=== PATIENT | male | born 1965 | race Asian ===

== ENCOUNTER 2020-05-12 08:18 | Outpatient (REF) | payer OTHER, SELFPAY | END 2020-05-12 08:19 | disposition home or self-care (01) | LOC: HO.LAB 08:18 | PROVIDERS: PCP Internal Medicine; Visit Provider Internal Medicine | DX: Z20.828 Contact with and (suspected) exposure to other viral communicable diseases (principal) | CPT/HCPCS: C9803; U0003 ==

== ENCOUNTER 2020-05-18 09:12 | Outpatient (REF) | payer OTHER, SELFPAY ==
[2020-05-18 10:21] LABS: MANUAL DIFF FLAG NO
[2020-05-18 10:44] LABS: Basophils Absolute Auto 0.1 X10*3/uL (0.0-0.2); Basophils Percent Auto 1.2 % (0-2); Eosinophils Absolute Auto 0.1 X10*3/uL (0.0-0.4); Eosinophils Percent Auto 1.2 % (0-4); Hematocrit 43.8 % (42-52); Hemoglobin 14.8 g/dl (14.0-18.0); Imm Gran Abs Auto 0.02 X10*3/uL (0.00-0.03); Imm Gran Pct Auto 0.3 % (0.0-0.4); Lymphocytes Absolute Auto 2.7 X10*3/uL (1.2-4.9); Lymphocytes Percent Auto 39.2 % (20-40); Mean Corpuscular HGB Conc 33.8 g/dl (31.0-36.0); Mean Corpuscular Volume 79.9 fL (80-98); Mean Platelet Volume 11.5 fL (9.4-12.4); Monocytes Absolute Auto 0.5 X10*3/uL (0.1-1.2); Monocytes Percent Auto 6.5 % (2-11); Neutrophils Absolute Auto 3.6 X10*3/uL (2.0-8.3); Neutrophils Percent Auto 51.6 % (45-73); Platelet Count 286 X10*3/uL (160-400); Red Blood Count 5.48 X10*6/uL (4.60-5.80); Red Cell Distribution Width 13.7 % (11.0-16.0); White Blood Count 6.9 X10*3/uL (4.8-10.8)
[2020-05-18 10:49] LABS: Estimated Average Glucose 120 mg/dL; Hemoglobin A1c % 5.8 %
[2020-05-18 10:51] LABS: Alanine Aminotransferase 28 U/L (0-40); Albumin Level 4.4 g/dL (3.5-5.0); Alkaline Phosphatase 76 U/L (39-117); Anion Gap 13 (12-20); Aspartate Amino Transferase 18 U/L (5-37); Bilirubin Total 0.5 mg/dL (0.0-1.0); Blood Urea Nitrogen 14 mg/dL (9-16); Calcium 8.7 mg/dL (8.4-10.2); Carbon Dioxide 26 mmol/L (22-29); Chloride 104 mmol/L (96-108); Cholesterol 134 mg/dL; Estimated Glomerular Filt Rate > 60; Glucose Random 107 mg/dL (60-115); HDL Cholesterol 30 mg/dL; LDL Cholesterol Calculated 70 mg/dl; Potassium 4.4 mmol/l (3.3-5.1); Sodium 139 mmol/L (135-145); Triglycerides 174 mg/dL
[2020-05-18 11:13] LABS: Thyroid Stimulating Hormone 1.16 uIU/mL (0.32-4.0)
[2020-05-18 11:55] LABS: Creatinine Urine 179.41 mg/dL; Microalbum/Creatinine Ratio Ur 3.9 ug/mg cr
== END 2020-05-18 09:13 | disposition home or self-care (01) ==
LOC: HO.LAB 09:12
PROVIDERS: Visit Provider Internal Medicine
DX: E11.9 Type 2 diabetes mellitus without complications (principal); I10 Essential (primary) hypertension; R80.8 Other proteinuria; Z00.00 Encounter for general adult medical examination without abnormal findings
CPT/HCPCS: 36415; 80053; 80061; 82043; 83036; 84443; 85025

== ENCOUNTER 2020-08-12 08:24 | Outpatient (REF) | payer OTHER, SELFPAY ==
[2020-08-12 09:27] LABS: Estimated Average Glucose 126 mg/dL
[2020-08-12 09:29] LABS: Alanine Aminotransferase 28 U/L (0-40); Albumin Level 4.5 g/dL (3.5-5.0); Alkaline Phosphatase 68 U/L (39-117); Anion Gap 11 (12-20); Aspartate Amino Transferase 17 U/L (5-37); Bilirubin Total 0.7 mg/dL (0.0-1.0); Blood Urea Nitrogen 14 mg/dL (9-16); Calcium 9.2 mg/dL (8.4-10.2); Carbon Dioxide 29 mmol/L (22-29); Chloride 102 mmol/L (96-108); Estimated Glomerular Filt Rate > 60; Glucose Random 114 mg/dL (60-115); Potassium 4.4 mmol/L (3.3-5.1); Sodium 138 mmol/L (135-145); Total Protein 7.1 g/dL (6.5-8.0)
== END 2020-08-12 08:25 | disposition home or self-care (01) ==
LOC: HO.LAB 08:24
PROVIDERS: PCP Internal Medicine; Visit Provider Internal Medicine
DX: E11.9 Type 2 diabetes mellitus without complications (principal); E78.2 Mixed hyperlipidemia; I10 Essential (primary) hypertension; R21 Rash and other nonspecific skin eruption; R80.8 Other proteinuria
CPT/HCPCS: 36415; 80053; 83036

== ENCOUNTER 2021-01-05 06:02 | Outpatient (REF) | payer OTHER, SELFPAY ==
[2021-01-05 07:05] LABS: Estimated Average Glucose 128 mg/dL; Hemoglobin A1c % 6.1 %
[2021-01-05 07:20] LABS: Alanine Aminotransferase 24 U/L (0-40); Albumin Level 4.5 g/dL (3.5-5.0); Alkaline Phosphatase 67 U/L (39-117); Anion Gap 13 (12-20); Aspartate Amino Transferase 19 U/L (5-37); Bilirubin Total 0.5 mg/dL (0.0-1.0); Blood Urea Nitrogen 14 mg/dL (9-16); Calcium 9.3 mg/dL (8.4-10.2); Carbon Dioxide 28 mmol/L (22-29); Chloride 104 mmol/L (96-108); Estimated Glomerular Filt Rate > 60; Glucose Random 119 mg/dL (60-115); Potassium 4.1 mmol/L (3.3-5.1); Sodium 141 mmol/L (135-145)
== END 2021-01-05 06:03 | disposition home or self-care (01) ==
LOC: HO.LAB 06:02
PROVIDERS: PCP Internal Medicine; Visit Provider Internal Medicine
DX: E11.9 Type 2 diabetes mellitus without complications (principal); E78.2 Mixed hyperlipidemia; I10 Essential (primary) hypertension; N52.9 Male erectile dysfunction, unspecified
CPT/HCPCS: 36415; 80053; 83036

== ENCOUNTER 2021-05-04 16:43 | Outpatient (REF) | payer OTHER, SELFPAY ==
[2021-05-04 16:55] LABS: MANUAL DIFF FLAG NO
[2021-05-04 17:46] LABS: Basophils Absolute Auto 0.1 X10*3/uL (0.0-0.2); Basophils Percent Auto 1.1 % (0-2); Eosinophils Percent Auto 0.5 % (0-4); Hematocrit 43.6 % (42.0-52.0); Hemoglobin 14.9 g/dl (14.0-18.0); Imm Gran Abs Auto 0.03 X10*3/uL (0.00-0.03); Imm Gran Pct Auto 0.4 % (0.0-0.4); Lymphocytes Absolute Auto 2.6 X10*3/uL (1.2-4.9); Mean Corpuscular HGB Conc 34.2 g/dl (31.0-36.0); Mean Corpuscular Hemoglobin 27.2 pg (27.0-33.0); Mean Corpuscular Volume 79.6 fL (80.0-98.0); Mean Platelet Volume 11.3 fL (9.4-12.4); Monocytes Absolute Auto 0.6 X10*3/uL (0.1-1.2); Monocytes Percent Auto 7.5 % (2-11); Neutrophils Absolute Auto 4.2 x10*3/uL (2.0-8.3); Neutrophils Percent Auto 55.5 % (45-73); Platelet Count 265 X10*3/uL (160-400); Red Blood Count 5.48 X10*6/uL (4.60-5.80); Red Cell Distribution Width 13.6 % (11.0-16.0); White Blood Count 7.5 X10*3/uL (4.8-10.8)
[2021-05-04 18:00] LABS: Estimated Average Glucose 134 mg/dL; Hemoglobin A1c % 6.3 %
[2021-05-04 18:10] LABS: Alanine Aminotransferase 26 U/L (0-40); Albumin Level 4.7 g/dL (3.5-5.0); Alkaline Phosphatase 71 U/L (39-117); Anion Gap 12 (12-20); Aspartate Amino Transferase 19 U/L (5-37); Bilirubin Total 0.3 mg/dL (0.0-1.0); Blood Urea Nitrogen 15 mg/dL (9-16); Calcium 9.6 mg/dL (8.4-10.2); Carbon Dioxide 29 mmol/L (22-29); Chloride 104 mmol/L (96-108); Cholesterol 124 mg/dL; Estimated Glomerular Filt Rate > 60; Glucose Random 110 mg/dL (60-115); HDL Cholesterol 32 mg/dL; LDL Cholesterol Calculated 62 mg/dl; Potassium 4.1 mmol/L (3.3-5.1); Sodium 141 mmol/L (135-145); Total Protein 7.4 g/dL (6.5-8.0); Triglycerides 154 mg/dL
[2021-05-04 18:11] LABS: Creatinine Urine 142.62 mg/dL; Microalbum/Creatinine Ratio Ur 4.9 ug/mg cr
== END 2021-05-04 16:44 | disposition home or self-care (01) ==
LOC: HO.LAB 16:43
PROVIDERS: PCP Internal Medicine; Visit Provider Internal Medicine
DX: Z00.00 Encounter for general adult medical examination without abnormal findings (principal); E11.9 Type 2 diabetes mellitus without complications; I10 Essential (primary) hypertension; M77.11 Lateral epicondylitis, right elbow
CPT/HCPCS: 36415; 80053; 80061; 82043; 83036; 85025

== ENCOUNTER 2021-08-25 14:02 | Outpatient (REF) | payer OTHER, SELFPAY ==
[2021-08-25 14:17] LABS: MANUAL DIFF FLAG NO
[2021-08-25 14:23] LABS: Basophils Absolute Auto 0.1 X10*3/uL (0.0-0.2); Basophils Percent Auto 0.7 % (0-2); Eosinophils Percent Auto 0.4 % (0-4); Hematocrit 44.6 % (42.0-52.0); Hemoglobin 15.3 g/dl (14.0-18.0); Imm Gran Abs Auto 0.02 X10*3/uL (0.00-0.03); Imm Gran Pct Auto 0.2 % (0.0-0.4); Lymphocytes Absolute Auto 2.6 X10*3/uL (1.2-4.9); Lymphocytes Percent Auto 28.8 % (20-40); Mean Corpuscular HGB Conc 34.3 g/dl (31.0-36.0); Mean Corpuscular Hemoglobin 27.1 pg (27.0-33.0); Mean Corpuscular Volume 79.1 fL (80.0-98.0); Mean Platelet Volume 10.4 fL (9.4-12.4); Monocytes Absolute Auto 0.5 X10*3/uL (0.1-1.2); Monocytes Percent Auto 5.7 % (2-11); Neutrophils Absolute Auto 5.8 x10*3/uL (2.0-8.3); Neutrophils Percent Auto 64.2 % (45-73); Platelet Count 299 X10*3/uL (160-400); Red Blood Count 5.64 X10*6/uL (4.60-5.80); Red Cell Distribution Width 13.4 % (11.0-16.0); White Blood Count 9.1 X10*3/uL (4.8-10.8)
[2021-08-25 14:41] LABS: Estimated Average Glucose 128 mg/dL; Hemoglobin A1c % 6.1 %
[2021-08-25 15:03] LABS: Creatinine Urine 80.59 mg/dL; Microalbumin Urine < 5.0 mg/L
[2021-08-25 15:09] LABS: Alanine Aminotransferase 31 U/L (0-40); Albumin Level 4.6 g/dL (3.5-5.0); Alkaline Phosphatase 72 U/L (39-117); Anion Gap 13 (12-20); Aspartate Amino Transferase 22 U/L (5-37); Bilirubin Total 0.6 mg/dL (0.0-1.0); Blood Urea Nitrogen 17 mg/dL (9-16); Calcium 9.7 mg/dL (8.4-10.2); Carbon Dioxide 28 mmol/L (22-29); Chloride 100 mmol/L (96-108); Cholesterol 135 mg/dL; Estimated Glomerular Filt Rate > 60; Glucose Random 92 mg/dL (60-115); HDL Cholesterol 28 mg/dL; LDL Cholesterol Calculated 81 mg/dl; Sodium 137 mmol/L (135-145); Total Protein 7.2 g/dL (6.5-8.0); Triglycerides 132 mg/dL
== END 2021-08-25 14:03 | disposition home or self-care (01) ==
LOC: HO.LAB 14:02
PROVIDERS: PCP Internal Medicine; Visit Provider Internal Medicine
DX: Z00.00 Encounter for general adult medical examination without abnormal findings (principal); E11.9 Type 2 diabetes mellitus without complications; I10 Essential (primary) hypertension; M77.11 Lateral epicondylitis, right elbow
CPT/HCPCS: 36415; 80053; 80061; 82043; 83036; 85025

== ENCOUNTER 2021-08-30 16:22 | Outpatient (REF) | payer OTHER, SELFPAY ==
--- NOTE | ~2021-08-30 | CT_ITS ---
EXAMINATION: CT CHEST SCREENING CLINICAL INFORMATION: Former smoker. Quit 3 years ago. 30 pack-year history. COMPARISON: Previous chest CT scans most recent February 2020 TECHNIQUE: Multidetector volumetric CT imaging of the chest is performed without contrast using low dose technique. Additional 2D coronal and sagittal reformatted images and axial 3D maximum intensity projection (MIP) images are generated on the CT workstation. This CT examination was performed using dose optimization techniques as appropriate, variously including the following: *Automated exposure control *Adjustment of mA and/or kV according to patient size (this includes techniques or standardized protocols for targeted exams where dose is matched to indication/reason for exam; i.e. extremities or head) *Use of iterative reconstruction technique DLP: 52 mGy-cm FINDINGS: LUNGS: There is right apical pleural thickening. There is a new 3 mm left upper lobe nodule, axial image 180 series 5. The pulmonary nodules are otherwise stable. There is chronic scarring or subsegmental atelectasis in the medial segment of the right middle lobe. This is unchanged. No endobronchial or endotracheal lesion is seen. MEDIASTINUM: The mediastinum is normal. PLEURA: There is no pleural effusion. No pleural mass or thickening. AXILLA: No lymphadenopathy. UPPER ABDOMEN: Unremarkable OSSEOUS STRUCTURES: Unremarkable. CT/CT lung screening IMPRESSION: New 3 mm left upper lobe nodule. ASSESSMENT: Lung-RADS category 2 RECOMMENDATION: Annual low dose chest CT follow up recommended.
== END 2021-08-30 16:23 | disposition home or self-care (01) ==
LOC: HO.CT 16:22
PROVIDERS: Visit Provider Physician Assistant Medical
DX: Z12.2 Encounter for screening for malignant neoplasm of respiratory organs (principal); F17.210 Nicotine dependence, cigarettes, uncomplicated
CPT/HCPCS: 71271

== ENCOUNTER 2022-02-05 07:14 | Outpatient (REF) | payer OTHER, SELFPAY ==
[2022-02-05 08:01] LABS: Estimated Average Glucose 126 mg/dL
[2022-02-05 08:42] LABS: Alanine Aminotransferase 21 U/L (0-40); Albumin Level 4.3 g/dL (3.5-5.0); Alkaline Phosphatase 70 U/L (39-117); Anion Gap 14 (12-20); Aspartate Amino Transferase 15 U/L (5-37); Bilirubin Total 0.5 mg/dL (0.0-1.0); Blood Urea Nitrogen 14 mg/dL (9-16); Calcium 8.8 mg/dL (8.4-10.2); Carbon Dioxide 26 mmol/L (22-29); Chloride 105 mmol/L (96-108); Estimated Glomerular Filt Rate > 60; Glucose Fasting 135 mg/dL (60-99); Potassium 4.4 mmol/L (3.3-5.1); Sodium 141 mmol/L (135-145); Total Protein 6.9 g/dL (6.5-8.0)
== END 2022-02-05 07:15 | disposition home or self-care (01) ==
LOC: HO.LAB 07:14
PROVIDERS: PCP Internal Medicine; Visit Provider Internal Medicine
DX: E11.9 Type 2 diabetes mellitus without complications (principal); E78.00 Pure hypercholesterolemia, unspecified; F17.201 Nicotine dependence, unspecified, in remission; I10 Essential (primary) hypertension
CPT/HCPCS: 36415; 80053; 83036

== ENCOUNTER 2022-04-26 15:29 | Outpatient (REF) | payer OTHER, SELFPAY ==
--- NOTE | ~2022-04-26 | XR_ITS ---
EXAMINATION: XR CHEST CLINICAL INFORMATION: Cough. COMPARISON: Morning Caregiver film from CT dated 08/30/2021 TECHNIQUE: 2 views of the chest were obtained. FINDINGS: There is no evidence for an acute finding. The lung park are felt to be comparable. No acute infiltrate or effusion. The cardiac silhouette is within normal limits. The hilar regions are comparable to previous. Not pathologically enlarged. There is no effusion. XR/XR chest 2V IMPRESSION: No acute finding.
== END 2022-04-26 15:30 | disposition home or self-care (01) ==
LOC: HO.XRAY 15:29
PROVIDERS: PCP Internal Medicine; Visit Provider Internal Medicine
DX: R05.9 Cough, unspecified (principal); F17.200 Nicotine dependence, unspecified, uncomplicated
CPT/HCPCS: 71046

== ENCOUNTER 2022-06-11 09:57 | Outpatient (REF) | payer OTHER, SELFPAY ==
[2022-06-11 11:15] LABS: Estimated Average Glucose 140 mg/dL; Hemoglobin A1c % 6.5 %
[2022-06-11 11:38] LABS: Alanine Aminotransferase 28 U/L (0-40); Albumin Level 4.5 g/dL (3.5-5.0); Alkaline Phosphatase 82 U/L (39-117); Anion Gap 14 (12-20); Aspartate Amino Transferase 20 U/L (5-37); Bilirubin Total 0.6 mg/dL (0.0-1.0); Blood Urea Nitrogen 14 mg/dL (9-16); Calcium 9.5 mg/dL (8.4-10.2); Carbon Dioxide 27 mmol/L (22-29); Chloride 105 mmol/L (96-108); Cholesterol 135 mg/dL; Estimated Glomerular Filt Rate > 60; Glucose Random 124 mg/dL (60-115); HDL Cholesterol 29 mg/dL; LDL Cholesterol Calculated 71 mg/dl; Potassium 4.5 mmol/L (3.3-5.1); Sodium 141 mmol/L (135-145); Total Protein 7.1 g/dL (6.5-8.0); Triglycerides 179 mg/dL
[2022-06-11 11:38] LABS: Microalbum/Creatinine Ratio Ur 4.4 ug/mg cr
[2022-06-11 11:56] LABS: Prostate Specific Antigen Scr 0.32 ng/mL (<0.05-4.0); Thyroid Stimulating Hormone 1.25 uIU/mL (0.32-4.0)
== END 2022-06-11 09:58 | disposition home or self-care (01) ==
LOC: HO.LAB 09:57
PROVIDERS: Visit Provider Internal Medicine
DX: Z12.5 Encounter for screening for malignant neoplasm of prostate (principal); E78.2 Mixed hyperlipidemia; I10 Essential (primary) hypertension; F17.200 Nicotine dependence, unspecified, uncomplicated
CPT/HCPCS: 36415; 80053; 80061; 82043; 83036; 84153; 84443

== ENCOUNTER 2022-09-20 11:01 | Outpatient (REF) | payer OTHER, SELFPAY ==
[2022-09-20 13:22] LABS: Estimated Average Glucose 131 mg/dL; Hemoglobin A1c % 6.2 %
[2022-09-20 13:49] LABS: Alanine Aminotransferase 25 U/L (0-40); Albumin Level 4.6 g/dL (3.5-5.0); Alkaline Phosphatase 74 U/L (39-117); Anion Gap 14 (12-20); Aspartate Amino Transferase 16 U/L (5-37); Bilirubin Total 0.8 mg/dL (0.0-1.0); Blood Urea Nitrogen 14 mg/dL (9-16); Calcium 9.2 mg/dL (8.4-10.2); Carbon Dioxide 27 mmol/L (22-29); Chloride 106 mmol/L (96-108); Estimated Glomerular Filt Rate > 60; Glucose Random 129 mg/dL (60-115); Potassium 4.6 mmol/L (3.3-5.1); Sodium 142 mmol/L (135-145)
== END 2022-09-20 11:02 | disposition home or self-care (01) ==
LOC: HO.LAB 11:01
PROVIDERS: PCP Internal Medicine; Visit Provider Internal Medicine
DX: Z00.00 Encounter for general adult medical examination without abnormal findings (principal); F17.211 Nicotine dependence, cigarettes, in remission; E11.9 Type 2 diabetes mellitus without complications; E78.00 Pure hypercholesterolemia, unspecified; I10 Essential (primary) hypertension
CPT/HCPCS: 36415; 80053; 83036

== ENCOUNTER 2022-09-30 15:10 | Outpatient (REF) | payer OTHER, SELFPAY ==
--- NOTE | ~2022-09-30 | CT_ITS ---
EXAMINATION: LUNG CANCER SCREENING CT CHEST WITHOUT CONTRAST CLINICAL INFORMATION: Former smoker with 30 pack year history, quit 3 years ago COMPARISON: 08/30/2021 TECHNIQUE: Multidetector volumetric CT imaging of the chest was obtained noncontrast using low dose screening CT technique. Axial thin section 0.625 mm reformations in soft tissue and lung windows were obtained. Sagittal and coronal reformations were obtained. Axial MIP images were also created and reviewed. This CT examination was performed using dose optimization techniques as appropriate, variously including the following: *Automated exposure control *Adjustment of mA and/or kV according to patient size (this includes techniques or standardized protocols for targeted exams where dose is matched to indication/reason for exam; i.e. extremities or head) *Use of iterative reconstruction technique TOTAL EXAM DLP: 52.06 mGy-cm FINDINGS: PULMONARY NODULES: No suspicious pulmonary nodules. Stable scattered pulmonary nodules measuring 3 mm or less as shown on the cuello images. LUNGS / PLEURA: No significant emphysema. Minimal diffuse bronchial wall thickening with accompanying slight cylindrical bronchiectatic change. Stable pleural-parenchymal scarring in the medial segment of the middle lobe and at the right lung apex. No pleural effusion or pneumothorax. MEDIASTINUM / ELBA: Heart normal in size without pericardial effusion. Great vessels normal caliber. No lymphadenopathy. Coronary calcifications present. Imaged thyroid gland unremarkable. CHEST WALL / AXILLA: Unremarkable. UPPER ABDOMEN: Included portions grossly unremarkable allowing for limitations in technique. OSSEOUS STRUCTURES: No acute or suspicious osseous abnormalities. CT/CT lung screening IMPRESSION: * No evidence of pulmonary malignancy. * There are no pulmonary nodules that meet criteria for short interval follow-up at this time. ASSESSMENT: Lung RADS category: 2. Benign appearance or behavior. Nodules with a very low likelihood of becoming a clinically active cancer due to size or lack of growth. Continue annual screening with low-dose CT in 12 months. Probability of malignancy less than 1%. INCIDENTAL FINDINGS (S CATEGORY): None. RECOMMENDATION: Follow up low dose CT chest in 1 year.
== END 2022-09-30 15:11 | disposition home or self-care (01) ==
LOC: HO.CT 15:10
PROVIDERS: PCP Internal Medicine; Visit Provider Physician Assistant Medical
DX: Z12.2 Encounter for screening for malignant neoplasm of respiratory organs (principal); Z87.891 Personal history of nicotine dependence
CPT/HCPCS: 71271

== ENCOUNTER 2023-02-22 16:13 | Outpatient (REF) | payer OTHER, SELFPAY ==
[2023-02-22 16:56] LABS: Estimated Average Glucose 126 mg/dL
[2023-02-22 17:21] LABS: Alanine Aminotransferase 23 U/L (0-40); Albumin Level 4.6 g/dL (3.5-5.0); Alkaline Phosphatase 76 U/L (39-117); Anion Gap 11 (12-20); Aspartate Amino Transferase 16 U/L (5-37); Bilirubin Total 0.2 mg/dL (0.0-1.0); Blood Urea Nitrogen 16 mg/dL (9-16); Calcium 9.1 mg/dL (8.4-10.2); Carbon Dioxide 26 mmol/L (22-29); Chloride 107 mmol/L (96-108); Estimated Glomerular Filt Rate > 60; Glucose Random 99 mg/dL (60-115); Potassium 3.8 mmol/L (3.3-5.1); Sodium 140 mmol/L (135-145); Total Protein 7.3 g/dL (6.5-8.0)
== END 2023-02-22 16:14 | disposition home or self-care (01) ==
LOC: HO.LAB 16:13
PROVIDERS: PCP Internal Medicine; Visit Provider Internal Medicine
DX: E11.9 Type 2 diabetes mellitus without complications (principal); E78.00 Pure hypercholesterolemia, unspecified; I10 Essential (primary) hypertension; F17.201 Nicotine dependence, unspecified, in remission
CPT/HCPCS: 36415; 80053; 83036

== ENCOUNTER 2023-02-28 09:56 | Day surgery (SDC) | payer OTHER, SELFPAY ==
--- NOTE | 2023-02-27 09:57 | P.CONAN_ITS ---
HPI - Anesthesia Eval Consult details Narrative: 57yo M for Upper Endoscopy and Colonoscopy [facility] Past Medical History Medical History Disc disorder Elevated cholesterol Diabetes HTN (hypertension) Surgical History Surgical History Previous back surgery Social History Social History Patient Tobacco Use Status: Current someday Tobacco user Smoked in Last 30 Days: Yes Patient Interested in Nicotine Replacement: No Are you DNR?: No Advance Directives: No Advance Directives Information Provided: Yes Nutrition Risks: No Nutritional Risk Meds Allergies Allergy/AdvReac Type Severity Reaction Status Date / Time No Known Allergies Allergy Verified 02/28/23 10:43 [No Known Allergies*] Home Medications Medication Instructions Recorded Confirmed Last Taken Type atorvastatin 10 mg tablet 10 mg PO DAILY 02/27/23 02/27/23 Unknown History metformin 500 mg tablet 500 mg PO DAILY 02/27/23 02/27/23 Unknown History omeprazole 20 mg capsule,delayed 20 mg PO DAILY 02/27/23 02/27/23 Unknown History release valsartan 160 1 tab PO DAILY 02/27/23 02/27/23 02/28/23 History mg-hydrochlorothiazide 12.5 mg tablet Exam Exam Date and Time: February 27, 2023 0957 Pertinent Lab Results Pertinent Lab Results: Laboratory Tests 08/25/21 02/22/23 14:13 16:33 WBC 9.1 Hgb 15.3 Hct 44.6 Plt Count 299 Sodium 140 Potassium 3.8 Chloride 107 Carbon Dioxide 26 BUN 16 Creatinine 0.80 Assessment and Plan Assessment Anesthesia Assessment: Chart Reviewed
[2023-02-28 10:36] VITALS: BMI 24.5
[2023-02-28] MEDS: Lactated Ringers 1,000 ML 100 ML IVCONT (10:49)
[2023-02-28 10:58] VITALS: BP 138/78; PULSE 75; RESP 18; TEMP 36.6; O2SAT 99
[2023-02-28 11:02] LABS: Glucose, Whole Blood 98 mg/dL (60-115)
--- NOTE | 2023-02-28 12:48 | PC.NURSE ---
patient arrived at 1000 as asked. Questions were completed in private area in waiting room. Patient brought into sss at 10:43. Was continually updated regarding times of when his procedure would be.. dr. damico and anesthesia at bedside at 12:25. patient continually voiced his concern that he thought he was going into procedure room sooner. continuous attempt to keep patient updated. patient updated his ride as well.
--- NOTE | 2023-02-28 13:28 | P.BOP_ITS ---
Brief Operative Note Date of Service: 02/28/23 Pre-op diagnosis: gerd screening Post-op diagnosis: same Procedure: egd colon Surgeon: Walker Morris Anesthesia: MAC Was an Slitter Creaser Slotter Helper used for this Procedure?: No Estimated blood loss (mL): 2 Condition: stable Disposition: PACU
[2023-02-28 13:32] VITALS: BP 98/61; PULSE 77; RESP 15; TEMP 36.1; O2SAT 100
[2023-02-28 13:47] VITALS: BP 106/77; PULSE 62; RESP 16; TEMP 36.1; O2SAT 98
--- NOTE | 2023-02-28 14:04 | OP_ITS ---
DATE OF SERVICE: 02/28/2023 SURGEON: Walker Morris MD INDICATIONS: 1. Gastroesophageal reflux disease. 2. Colon cancer screening. PREOPERATIVE DIAGNOSIS: POSTOPERATIVE DIAGNOSIS: PROCEDURE PERFORMED: Upper endoscopy with biopsy, colonoscopy to the terminal ileum with biopsy and snare polypectomy. ESTIMATED BLOOD LOSS: COMPLICATIONS: ANESTHESIA: Monitored anesthesia care. ASSISTANTS: SPECIMENS: DESCRIPTION OF PROCEDURE: A history and physical was performed. The risks and benefits of the procedure were explained to the patient. Informed consent was obtained. The patient was placed in the left lateral decubitus position. The Olympus video gastroscope was introduced into the esophagus, stomach, and duodenum. Examination was performed. The scope was removed. He was repositioned for colonoscopy. A digital rectal exam was performed and was found to be normal. The Olympus pediatric video colonoscope was introduced into the rectum and advanced to the cecum. The cecum was identified by transillumination, palpation, and identification of ileocecal valve. Examination was performed. The scope was removed. He tolerated both procedures well and was returned to the recovery area in stable condition. FINDINGS: Upper endoscopy: 1. Esophagus: The esophagus was normal. There was no esophagitis. Biopsies were obtained from the antrum and from the EG junction. 2. Stomach: The stomach was normal. 3. Duodenum: The bulb and 2nd portion were normal. Colonoscopy: The terminal ileum was examined and appeared normal. The visualized colonic mucosa was normal. The quality of the prep was good. Three polyps were removed with a combination of snare polypectomy and biopsy. These were located at 35 cm, 20 cm, and 15 cm. All were less than 10 mm. Retroflexed examination was normal. There was mild sigmoid diverticulosis. IMPRESSION: 1. Gastroesophageal reflux disease. 2. Colon polyps. RECOMMENDATION: Follow up the biopsy results. MD NIR Barbosa/PILLO / [id number]
== END 2023-02-28 14:11 | disposition home or self-care (01) ==
PROVIDERS: PCP Internal Medicine; Visit Provider Internal Medicine Gastroenterology
PROC: (CPT 45385; principal; 2023-02-28 11:10)
DX: Z12.11 Encounter for screening for malignant neoplasm of colon (principal); K63.5 Polyp of colon; K57.30 Diverticulosis of large intestine without perforation or abscess without bleeding; K21.9 Gastro-esophageal reflux disease without esophagitis; K29.50 Unspecified chronic gastritis without bleeding; B96.81 Helicobacter pylori [H. pylori] as the cause of diseases classified elsewhere; I10 Essential (primary) hypertension; E78.00 Pure hypercholesterolemia, unspecified; E11.9 Type 2 diabetes mellitus without complications; Z79.84 Long term (current) use of oral hypoglycemic drugs; Z79.899 Other long term (current) drug therapy; Z87.891 Personal history of nicotine dependence
CPT/HCPCS: 45385; 45380; 43239; 82947; 88305; 88342; J3010

== ENCOUNTER 2023-07-11 12:45 | Outpatient (REF) | payer OTHER, SELFPAY ==
[2023-07-11 13:13] LABS: MANUAL DIFF FLAG NO
[2023-07-11 13:47] LABS: Basophils Absolute Auto 0.1 X10*3/uL (0.0-0.2); Basophils Percent Auto 1.1 % (0-2); Eosinophils Percent Auto 0.4 % (0-4); Hematocrit 43.9 % (42.0-52.0); Hemoglobin 15.4 g/dl (14.0-18.0); Imm Gran Abs Auto 0.04 X10*3/uL (0.00-0.03); Imm Gran Pct Auto 0.4 % (0.0-0.4); Lymphocytes Percent Auto 32.1 % (20-40); Mean Corpuscular HGB Conc 35.1 g/dl (31.0-36.0); Mean Corpuscular Hemoglobin 27.7 pg (27.0-33.0); Mean Platelet Volume 10.8 fL (9.4-12.4); Monocytes Absolute Auto 0.6 X10*3/uL (0.1-1.2); Monocytes Percent Auto 5.9 % (2-11); Neutrophils Absolute Auto 5.7 x10*3/uL (2.0-8.3); Neutrophils Percent Auto 60.1 % (45-73); Platelet Count 283 X10*3/uL (160-400); Red Blood Count 5.56 X10*6/uL (4.60-5.80); Red Cell Distribution Width 13.4 % (11.0-16.0); White Blood Count 9.5 X10*3/uL (4.8-10.8)
[2023-07-11 14:45] LABS: Alanine Aminotransferase 29 U/L (0-40); Albumin Level 4.5 g/dL (3.5-5.0); Alkaline Phosphatase 75 U/L (39-117); Anion Gap 14 (12-20); Aspartate Amino Transferase 17 U/L (5-37); Bilirubin Total 0.3 mg/dL (0.0-1.0); Blood Urea Nitrogen 18 mg/dL (9-16); Calcium 9.1 mg/dL (8.4-10.2); Carbon Dioxide 25 mmol/L (22-29); Chloride 103 mmol/L (96-108); Cholesterol 127 mg/dL (<200); Estimated Glomerular Filt Rate > 60; Glucose Random 87 mg/dL (60-115); HDL Cholesterol 33 mg/dL (>40); LDL Cholesterol Calculated 51 mg/dL (<100); Potassium 3.7 mmol/L (3.3-5.1); Sodium 138 mmol/L (135-145); Total Protein 7.2 g/dL (6.5-8.0); Triglycerides 217 mg/dL (<150)
[2023-07-11 15:02] LABS: Prostate Specific Antigen Scr 0.34 ng/mL (<0.05-4.0); Vitamin B12 1348 pg/mL (200-900)
[2023-07-11 15:03] LABS: TSH reflex Free T4 1.58 uIU/mL (0.32-4.0)
[2023-07-11 15:56] LABS: Creatinine Urine 130.47 mg/dL; Microalbum/Creatinine Ratio Ur 5.3 ug/mg cr (<30)
== END 2023-07-11 12:46 | disposition home or self-care (01) ==
LOC: HO.LAB 12:45
PROVIDERS: PCP Internal Medicine; Visit Provider Internal Medicine
DX: Z00.00 Encounter for general adult medical examination without abnormal findings (principal); Z12.5 Encounter for screening for malignant neoplasm of prostate; R00.0 Tachycardia, unspecified; N40.0 Benign prostatic hyperplasia without lower urinary tract symptoms; M51.16 Intervertebral disc disorders with radiculopathy, lumbar region; E11.9 Type 2 diabetes mellitus without complications; E78.2 Mixed hyperlipidemia
CPT/HCPCS: 36415; 80053; 80061; 82043; 82570; 82607; 84153; 84443; 85025

== ENCOUNTER 2023-07-27 13:48 | Outpatient (REF) | payer OTHER, SELFPAY | END 2023-07-27 13:49 | disposition home or self-care (01) | LOC: HO.LNP 13:48 | PROVIDERS: Visit Provider Internal Medicine Gastroenterology | DX: A04.8 Other specified bacterial intestinal infections (principal) | CPT/HCPCS: 87338 ==

== ENCOUNTER 2023-10-17 16:19 | Outpatient (REF) | payer OTHER, SELFPAY ==
--- NOTE | ~2023-10-17 | CT_ITS ---
EXAMINATION: CT LOW-DOSE SCREENING CHEST WITHOUT CONTRAST CLINICAL INFORMATION: Personal history of nicotine dependence. The patient has a 30 pack-year history of smoking, having quit 4 years ago. COMPARISON: CT chest 09/30/2022. X-ray chest 04/26/2022. TECHNIQUE: Multidetector volumetric CT imaging of the chest is performed on a Siemens SOMATOM Definition scanner without contrast using low dose technique. Additional 2D coronal and sagittal reformatted images and axial 3D maximum intensity projection (MIP) images are generated on the CT workstation. This CT examination was performed using dose optimization techniques as appropriate, variously including the following: *Automated exposure control *Adjustment of mA and/or kV according to patient size (this includes techniques or standardized protocols for targeted exams where dose is matched to indication/reason for exam; i.e. extremities or head) *Use of iterative reconstruction technique TOTAL EXAM DLP: 58 mGy-cm. CTDIvol: 1.66 mGy. FINDINGS: PULMONARY NODULES: Multiple pulmonary nodules are again seen and unchanged when compared to the 09/30/2022 study with the largest measuring 4 mm in size. Banks images of all have been saved. There is no new, increasing sized or concerning pulmonary nodule seen. LUNGS: Lungs bilaterally symmetrically expanded. There is minimal emphysema along with peribronchial thickening. No effusion or pneumothorax. Central airways patent. MEDIASTINUM: No mediastinal, hilar or axillary adenopathy or free fluid collection. CORONARY ARTERY CALCIFICATION: None visualized on this study. THYROID GLAND: Unremarkable to the extent seen. CARDIOVASCULAR STRUCTURES: Aortic and heart size normal. No pericardial effusion. CHEST WALL/AXILLA: Unremarkable. UPPER ABDOMEN: There is hepatic steatosis. Included portions of the solid organs in the upper abdomen otherwise unremarkable on noncontrast imaging. OSSEOUS STRUCTURES: No suspicious focal findings. CT/CT lung screening IMPRESSION: Stable benign-appearing pulmonary nodules. No evidence of malignancy at this time. ASSESSMENT: 1. Lung-RADS Category 2: Benign appearance or behavior of nodules. N/A 2. Lung-RADS Category S: Negative. There are no clinically significant or potentially clinically significant findings not related to the lungs requiring urgent additional evaluation. RECOMMENDATION: Continued routine annual low-dose CT lung screening in 1 year is recommended. An order for CT CHEST LOW DOSE CANCER SCREENING ([id number]) can be placed.
== END 2023-10-17 16:20 | disposition home or self-care (01) ==
LOC: HO.CT 16:19
PROVIDERS: PCP Internal Medicine; Visit Provider Physician Assistant Medical
DX: Z12.2 Encounter for screening for malignant neoplasm of respiratory organs (principal); Z87.891 Personal history of nicotine dependence
CPT/HCPCS: 71271

== ENCOUNTER 2023-11-18 06:57 | Outpatient (REF) | payer OTHER, SELFPAY ==
[2023-11-18 07:57] LABS: Estimated Average Glucose 131 mg/dL; Hemoglobin A1c % 6.2 % (<6.0)
[2023-11-18 08:19] LABS: Alanine Aminotransferase 25 U/L (0-40); Albumin Level 4.4 g/dL (3.5-5.0); Alkaline Phosphatase 77 U/L (39-117); Anion Gap 14 (12-20); Aspartate Amino Transferase 18 U/L (5-37); Bilirubin Total 0.5 mg/dL (0.0-1.0); Blood Urea Nitrogen 13 mg/dL (9-16); Calcium 9.1 mg/dL (8.4-10.2); Carbon Dioxide 25 mmol/L (22-29); Chloride 106 mmol/L (96-108); Estimated Glomerular Filt Rate > 60; Glucose Random 130 mg/dL (60-115); Potassium 4.1 mmol/L (3.3-5.1); Sodium 141 mmol/L (135-145)
== END 2023-11-18 06:58 | disposition home or self-care (01) ==
LOC: HO.LAB 06:57
PROVIDERS: PCP Internal Medicine; Visit Provider Internal Medicine
DX: E11.9 Type 2 diabetes mellitus without complications (principal); E78.2 Mixed hyperlipidemia; F17.201 Nicotine dependence, unspecified, in remission; I10 Essential (primary) hypertension
CPT/HCPCS: 36415; 80053; 83036

== ENCOUNTER 2024-05-04 07:02 | Outpatient (REF) | payer OTHER, SELFPAY ==
[2024-05-04 07:48] LABS: Estimated Average Glucose 140 mg/dL; Hemoglobin A1C 183.3219 umol/L; Hemoglobin A1c % 6.5 % (<6.0); Total Hemoglobin (HGBA1C) 3889.8813 umol/L
[2024-05-04 08:16] LABS: Alanine Aminotransferase 30 U/L (0-40); Albumin Level 4.5 g/dL (3.5-5.0); Alkaline Phosphatase 65 U/L (39-117); Anion Gap 13 (12-20); Aspartate Amino Transferase 20 U/L (5-37); Bilirubin Total 0.5 mg/dL (0.0-1.0); Blood Urea Nitrogen 17 mg/dL (9-16); Calcium 9.2 mg/dL (8.4-10.2); Carbon Dioxide 25 mmol/L (22-29); Chloride 106 mmol/L (96-108); Estimated Glomerular Filt Rate > 60; Glucose Random 132 mg/dL (60-115); Sodium 140 mmol/L (135-145); Total Protein 7.1 g/dL (6.5-8.0)
== END 2024-05-04 07:03 | disposition home or self-care (01) ==
LOC: HO.LAB 07:02
PROVIDERS: PCP Internal Medicine; Visit Provider Internal Medicine
DX: E11.9 Type 2 diabetes mellitus without complications (principal); I10 Essential (primary) hypertension; E78.2 Mixed hyperlipidemia; Z72.0 Tobacco use
CPT/HCPCS: 36415; 80053; 83036

== ENCOUNTER 2024-08-17 07:25 | Outpatient (REF) | payer OTHER, SELFPAY ==
--- OUTSIDE RECORDS SUMMARY | 2024-08-17 07:27 | XMS_ITS ---
Author Organization [facility] Address [address] [place] [address] Care Team Providers Care Manager Water Wastewater Name Role Phone Rosalba Bah Primary Care Provider Unavailab Walker Jovel Jr Unavailable Allergies No Known Allergies REASON FOR VISIT Patient presents today for a f/u from H-pylori Medications Medication SIG (Take, Route, Frequency, Duration) Notes Start Date End Date Status Omeprazole 20 MG 1 Orally Twice a day for 14 days 03/09/2023 Active Naproxen 500 MG Oral for 90 Ac tive Centrum - as directed Orally A ctive metFORMIN HCl 1000 MG TAKE 1 TABLET BY M OUTH TWICE DAILY Oral for 90 Active Atorvastatin Calcium 10 MG TAKE 1 TABLET BY MOUTH AT BEDTIME Oral for 90 Active Valsartan-hydroCHLOROthiazi de 160-12.5 MG TAKE 1 TABLET BY MOUTH EVERY DAY Oral for 90 Active Social History Tobacco Use: Social History Observation Description Date Details (start date - stop date) Former Smoker NA - NA Tobacco Use/Smoking Question Answer Notes Patient is a former smoker Alcohol Screen Question Answer Notes Did you have a drink contain ing alcohol in the past year? Yes How often did you have a dri nk containing alcohol in the past year? Never (0 point) How many drinks did you have on a typical day when you were drinking in the past year? 1 or 2 drinks (0 point) How often did you have 6 or more drinks on one occasion in the past year? Never (0 point) Points 0 Interpretation Negative Problems Problem Type SNOMED Code ICD Code Onset Dates Problem Status W/U Status Risk Notes Problem 666182396 H. pylori infection (A04.8) Active confirmed Problem 727000463 Gastritis, unspecified, without bleeding (K29.70) Active confirmed Problem 1542838 Helicobacter pylori [H. pylori] as the cause of diseases classified elsewhere (B96.81) Active confirmed Vital Signs Temperature 97.7 degrees Fahrenheit 07/13/19 24 Blood pressure systolic 00 mm Hg 07/13/19 24 Blood pressure diastolic 00 mm Hg 024 Height 70 in 07/13/2023 Weight 167 lbs 07/13/2023 BMI 23.96 kg/m2 07/13/2023 Encounters Encounter Location Date Provider Diagnosis [facility] [address] [place] [address] 07/13/2023 Walker Morris Jr H. pylori infection A04.8 ; Gastritis, unspecified, without bleeding K29.70 ; Helicobacter pylori [H. pylori] as the cause of diseases classified elsewhere B96.81 and Adenomatous polyp of colon, unspecified part of colon D12.6 Assessments Encounter Date Diagnosis (ICD Code) Assessment Notes Treatment Notes Treatment Clinical Notes Section Notes 07/13/2023 H. pylori infection (ICD-10 - A04.8) Helicobacter pylori infection material was printed At this time, he is doing well. H. pylori infection has been treated. He will followup H. pylori testing for stool antigen. He is advised to stop omeprazole for 2 weeks before this. Followup will be pending the results of stool testing. He is up-to-date on colorectal cancer screening. We reviewed this today. 07/13/2023 Gastritis, unspecified, without bleeding (ICD-10 - K29.70) At this time, he is doing well. H. pylori infection has been treated. He will followup H. pylori testing for stool antigen. He is advised to stop omeprazole for 2 weeks before this. Followup will be pending the results of stool testing. He is up-to-date on colorectal cancer screening. We reviewed this today. 07/13/2023 Helicobacter pylori [H. pylori] as the cause of diseases classified elsewhere (ICD-10 - B96.81) At this time, he is doing well. H. pylori infection has been treated. He will followup H. pylori testing for stool antigen. He is advised to stop omeprazole for 2 weeks before this. Followup will be pending the results of stool testing. He is up-to-date on colorectal cancer screening. We reviewed this today. 07/13/2023 Adenomatous polyp of colon, unspecified part of colon (ICD-10 - D12.6) At this time, he is doing well. H. pylori infection has been treated. He will followup H. pylori testing for stool antigen. He is advised to stop omeprazole for 2 weeks before this. Followup will be pending the results of stool testing. He is up-to-date on colorectal cancer screening. We reviewed this today. Plan Of Treatment Treatment Notes Assessment Notes H. pylori infection Helicobacter pylori infection material was printed Pending Test Test Name Order Date H PYLORI AG, STOOL 07/13/2023 Next Appt Details Follow Up: 1 Year, Reason: Progress Notes * MELISSA MANUELOB:1965 ( 57 yo M)Acc No.[id number]:07/13/2023 Progress Notes Patient:?TC MANUEL Provider:?Walker Morris MD :1965???Age:57 Y???Sex:Male Arthur e:07/13/2023 Address:[address] [place] [address] [facility] Pcp:Rosalba Bah Subjective: * Chief Complaints: * ???1. Patient presents today for a f/u from H-pylori. * HPI: ???New symptom(s):? Tc returns today for followup of H. pylori associated gastritis. Endoscopy in February showed H. pylori which was treated with triple therapy with omeprazole amoxicillin and clarithromycin. He tolerated the procedure well. He has no complaints of dysphagia, hematemesis, or melena. Stools are normal with no blood. Colonoscopy at the same time showed several polyps and seven-year followup was recommended. We reviewed this today. He is still using omeprazole intermittently for occasional reflux symptoms. * Medical History:?Diabetes me llitus, Hypertension, Discussed disease, Hyperlipidemia, H. pylori associated gastritis, EGD 02/25, OAC x2 weeks, Colonoscopy 02/25, colon polyps, seven-year recall. * Surgical History:?disc surge ry- hermann 2016. * Family History:?Father: dece ased.?Mother: .? unknown hx of colon cancer polyps or liver ds. * Social History:?Tobacco Use:?Tobacco Use/Smoking?Patient is a?former smoker.?Drugs/Alcohol:?Alcohol Screen?Did you have a drink containing alcohol in the past year??Yes,?How often did you have a drink containing alcohol in the past year??Never (0 point),?How many drinks did you have on a typical day when you were drinking in the past year??1 or 2 drinks (0 point),?How often did you have 6 or more drinks on one occasion in the past year??Never (0 point),?Points?0,?Interpretation?Negative.?Miscellaneous:?Marital status: . Occupation: none. * Medications:?Taking Valsarta n-hydroCHLOROthiazide 160-12.5 MG Tablet TAKE 1 TABLET BY MOUTH EVERY DAY Oral , Taking metFORMIN HCl 1000 MG Tablet TAKE 1 TABLET BY MOUTH TWICE DAILY Oral , Taking Atorvastatin Calcium 10 MG Tablet TAKE 1 TABLET BY MOUTH AT BEDTIME Oral , Taking Centrum - Tablet Chewable as directed Orally , Taking Omeprazole 20 MG Capsule Delayed Release 1 Orally Twice a day, Taking Naproxen 500 MG Tablet Oral , Discontinued Chantix 1 MG Tablet TK 1 T PO BID Oral , Discontinued Amoxicillin 500 MG Capsule 2 capsules Orally Twice a day, Discontinued Clarithromycin 500 MG Tablet 1 tablet Orally every 12 hrs, Medication List reviewed and reconciled with the patient * Allergies:?N.K.D.A. Objective: * Vitals:?Wt: 167 lbs, Ht: 70 in, BMI:23.96 Index, BP: 00/00 mm Hg, Temp: 97.7. * Examination: ???General Examination: ???On examination today, he appears well. Skin is anicteric. Lungs are clear. Heart shows regular rate and rhythm. Abdomen is soft without focal mass or tenderness. Extremities are without edema. Assessment: * Assessment: 1.?H. pylori infection - A04 .8 (Primary)?2.?Gastritis, unspecified, without bleeding - K29.70?3.?Helicobacter pylori [H. pylori] as the cause of diseases classified elsewhere - B96.81?4.?Adenomatous polyp of colon, unspecified part of colon - D12.6? At this time, he is doing we ll. H. pylori infection has been treated. He will followup H. pylori testing for stool antigen. He is advised to stop omeprazole for 2 weeks before this. Followup will be pending the results of stool testing. He is up-to-date on colorectal cancer screening. We reviewed this today. Plan: * Treatment: * Procedure Codes:?3017F COLOR ECTAL CA SCREEN DOC REV, G9903 Pt scrn tbco id as non user, G9744 PATIENT NOT ELIG D/T ACTIVE DX HTN * Follow Up:?1 Year * * Sign off status: Completed true * Provider:?Walker Morris MD Date:?0 07/13/2023 Generated for Lidia canela/Missy/eTransmitting on:?08/17/2024 07:27 AM EDT History and Physical Notes * HPI (History of Present Illness) Category Sub-Category Detail Notes Category Not es New symptom(s) Tc returns today for followup of H. pylori associated gastritis. Endoscopy in February showed H. pylori which was treated with triple therapy with omeprazole amoxicillin and clarithromycin. He tolerated the procedure well. He has no complaints of dysphagia, hematemesis, or melena. Stools are normal with no blood. Colonoscopy at the same time showed several polyps and seven-year followup was recommended. We reviewed this today. He is still using omeprazole intermittently for occasional reflux symptoms. Examination Category Sub-Category Detail Notes Category Not es General Examination On exami nation today, he appears well. Skin is anicteric. Lungs are clear. Heart shows regular rate and rhythm. Abdomen is soft without focal mass or tenderness. Extremities are without edema.
--- OUTSIDE RECORDS SUMMARY | 2024-08-17 07:27 | XMS_ITS | Patient Health Record ---
Author Organization [facility] Address [address] [place] [address] Care Team Providers Care Archery Instructor Name Role Phone Jonesnegra Rosalba Primary Care Provider Unavailab Walker Jovel Jr Unavailable [phone] Allergies No Known Allergies Reason For Referral No Information Medications Medication SIG (Take, Route, Frequency, Duration) [...] MOUTH EVERY DAY Oral for 90 Active Immunizations Vaccine Route Administration Date Status Comme nts Influenza Unknown 06/18/2020 Administered Influenza Unknown 11/21/2022 Refused Social History Tobacco Use: Social History Observation [...] Problem Status W/U Status Risk Notes Problem 464799276 Colon cancer screening (Z12.11) Active confirmed Problem 0014419 Helicobacter pylori [H. pylori] as the cause of diseases classified elsewhere (B96.81) Active confirmed Problem 137500718 Gastritis, unspecified, without bleeding (K29.70) Active confirmed Problem Gastroesophageal reflux disease (427594681) Gastroesophageal reflux disease (K21.9) Active confirmed Problem 792506130 H. pylori infection (A04.8) Active confirmed Problem 033461438071485 penitentiary (current) use of oral hypoglycemic drugs (Z79.84) Active confirmed Problem 972020550 Gastroesophageal reflux disease, unspecified whether esophagitis present (K21.9) Active confirmed Plan Of Treatment Pending Test Test Name Order Date H PYLORI AG, STOOL 07/13/2023 Future Test Test Name Order Date COLONOSCOPY 06/18/2020 UPPER GI ENDOSCOPY 11/21/2022 COLONOSCOPY 11/21/2022 Insurance Providers Payer Name Payer Address Payer Phone Subscriber Number Group Number Insured Name Patient Relationship to Insured Coverage Start Date Coverage End Date [facility] [address] [place] [address] [id number] TC MANUEL Self - patient is the insured MEDICA[employer] OF [email or web address] [address] [place] [address] [id number] TC MANUEL Self - patient is the insured Medical (General) History Medical History History ICD Code Diabetes mellitus Hypertension Discussed disease Hyperlipidemia H. pylori associated gastritis, EGD 02/25 , OAC x2 weeks Colonoscopy 02/25, colon polyps, seven-ye ar recall Surgical History Surgery Date(Month/Year) disc surgery- hermann 2017
--- OUTSIDE RECORDS SUMMARY | 2024-08-17 07:27 | XMS_ITS ---
Author Organization [facility] Address [address] [place] [phone] Care Team Providers Care Laundry Attendant Name Role Phone Rosalba Bah Primary Care Provider Unavailab Walker Jovel Jr [phone] REASON FOR VISIT pathology/ 7 yr colon recall Medications Medication SIG (Take, Route, Fr equency, Duration) Notes Start Date End Date Status Amoxicillin 500 MG 2 capsules Orally Tw ice a day for 14 days 03/09/2023 Active Omeprazole 20 MG 1 Orally Twice a day for 14 days 03/09/2023 Active Clarithromycin 500 MG 1 tablet Orally ev payam 12 hrs for 14 days 03/09/2023 Active Encounters Encounter Location Date Provider Diagnosis [facility] [address] [place] [phone] 03/09/2023 Walker Morris Jr Plan Of Treatment Medication Medication Name Sig Start Date Stop Date Notes Amoxicillin 500 MG 2 capsules Orally Tw ice a day for 14 days 03/09/2023 Omeprazole 20 MG 1 Orally Twice a day for 14 days 03/09/20 23 Clarithromycin 500 MG 1 tablet Orally ev payam 12 hrs for 14 days 03/09/2023 Progress Notes * MELISSA MANUELOB:1965 ( 57 yo M)Acc No.[id number]:03/09/2023 Patient:?MAR TC :1965???Age:57 Y???Sex:Male Address:[address] [place], [address] * Refills? Start Amoxicillin Capsule, 500 MG, Orally, 56 Capsule, 2 capsules, Twice a day, 14 days, Refills=0 Start Clarithromycin Tablet, 500 MG, Orally, 28 Tablet, 1 tablet, every 12 hrs, 14 days, Refills=0 Start Omeprazole Capsule Delayed Release, 20 MG, Orally, 28, 1, Twice a day, 14 days, Refills=0 * true * Date:? Generated for Lidia canela/Missy/Gemmaitting on:?08/17/2024 07:27 AM EDT
[2024-08-17 07:41] LABS: MANUAL DIFF FLAG NO
[2024-08-17 07:48] LABS: Basophils Absolute Auto 0.1 X10*3/uL (0.0-0.2); Basophils Percent Auto 1.4 % (0-2); Eosinophils Absolute Auto 0.1 X10*3/uL (0.0-0.4); Eosinophils Percent Auto 1.3 % (0-4); Hemoglobin 15.5 g/dl (14.0-18.0); Imm Gran Abs Auto 0.02 X10*3/uL (0.00-0.03); Imm Gran Pct Auto 0.3 % (0.0-0.4); Lymphocytes Percent Auto 31.8 % (20-40); Mean Corpuscular Hemoglobin 27.7 pg (27.0-33.0); Mean Corpuscular Volume 76.8 fL (80.0-98.0); Mean Platelet Volume 10.1 fL (9.4-12.4); Monocytes Absolute Auto 0.4 X10*3/uL (0.1-1.2); Monocytes Percent Auto 6.8 % (2-11); Neutrophils Absolute Auto 3.7 x10*3/uL (2.0-8.3); Neutrophils Percent Auto 58.4 % (45-73); Platelet Count 265 X10*3/uL (160-400); Red Cell Distribution Width 13.2 % (11.0-16.0); White Blood Count 6.3 X10*3/uL (4.8-10.8)
[2024-08-17 08:31] LABS: Creatinine Urine 188.16 mg/dL; Microalbum/Creatinine Ratio Ur 5.3 ug/mg cr (<30)
[2024-08-17 08:40] LABS: Alanine Aminotransferase 29 U/L (0-40); Albumin Level 4.3 g/dL (3.5-5.0); Alkaline Phosphatase 65 U/L (39-117); Anion Gap 12 (12-20); Aspartate Amino Transferase 20 U/L (5-37); Bilirubin Total 0.5 mg/dL (0.0-1.0); Blood Urea Nitrogen 17 mg/dL (9-16); Calcium 8.6 mg/dL (8.4-10.2); Carbon Dioxide 24 mmol/L (22-29); Chloride 107 mmol/L (96-108); Cholesterol 126 mg/dL (<200); Estimated Glomerular Filt Rate > 60; Glucose Random 135 mg/dL (60-115); HDL Cholesterol 52 mg/dL (>40); LDL Cholesterol Calculated 45 mg/dL (<100); Sodium 139 mmol/L (135-145); Total Protein 7.3 g/dL (6.5-8.0); Triglycerides 148 mg/dL (<150)
[2024-08-17 08:53] LABS: Prostate Specific Antigen Scr 0.37 ng/mL (<0.05-4.0)
== END 2024-08-17 07:26 | disposition home or self-care (01) ==
LOC: HO.LAB 07:25
PROVIDERS: PCP Internal Medicine; Visit Provider Internal Medicine
DX: E11.9 Type 2 diabetes mellitus without complications (principal); E78.00 Pure hypercholesterolemia, unspecified; I10 Essential (primary) hypertension; Z12.5 Encounter for screening for malignant neoplasm of prostate
CPT/HCPCS: 36415; 80053; 80061; 82043; 82570; 84153; 85025

== ENCOUNTER 2024-10-22 15:39 | Outpatient (REF) | payer OTHER, SELFPAY ==
--- OUTSIDE RECORDS SUMMARY | 2024-10-22 16:37 | XMS_ITS ---
Author Organization [facility] Address [address] [place] [phone] Care Team Providers Care Flour Blender Name Role Phone Rosalba Bah Primary Care Provider Unavailab Walker Jovel Jr REASON FOR VISIT pathology Encounters Encounter Location Date Provider Diagnosis [facility] [address] [place] [phone] 07/31/2023 Walker Morris Jr Plan Of Treatment No Information Progress Notes * MELISSA MANUELOB:1965 ( 57 yo M)Acc No.[id number]:07/31/2023 Patient:?TC MANUEL :1965???Age:57 Y???Sex:Male Address:[address] [place], [address] * true * Date:? Generated for Christiani rola/Missy/eTransmitting on:?10/22/2024 04:37 PM EDT
--- OUTSIDE RECORDS SUMMARY | 2024-10-22 16:37 | XMS_ITS ---
Author Organization [facility] Address [address] [place] [address] Care Team Providers Care Container Finishing Inspector Name Role Phone Rosalba Bah Primary Care Provider Unavailab Walker Jovel Jr Unavailable [phone] Allergies No Known Allergies REASON FOR VISIT [...] Problem Status W/U Status Risk Notes Problem 700947684 H. pylori infection (A04.8) Active confirmed Problem 944400315 Gastritis, unspecified, without bleeding (K29.70) Active confirmed Problem 3128175 Helicobacter pylori [H. pylori] as the cause of diseases classified elsewhere (B96.81) Active confirmed Vital Signs Temperature 97.7 degrees Fahrenheit 07/13/19 24 Blood pressure systolic 00 mm Hg 07/13/19 24 Blood pressure diastolic 00 mm Hg 024 Height 70 in 07/13/2023 Weight 167 lbs 07/13/2023 BMI 23.96 kg/m2 07/13/2023 Encounters Encounter Location Date Provider Diagnosis [facility] [address] [place] [address] 07/13/2023 Walker Morris Jr H. pylori infection [...] * MELISSA MANUELOB:1965 ( 57 yo M)Acc No.[id number]:07/13/2023 Progress Notes Patient:?TC MANUEL Provider:?Walker Morris MD :1965???Age:57 Y???Sex:Male Arthur e:07/13/2023 Address:[address] [place] [address] [facility] Pcp:Rosalba Bah Subjective: * Chief Complaints: * [...] MD Date:?0 07/13/2023 Generated for Lidia canela/Missy/eTransmitting on:?10/22/2024 04:37 PM EDT History and Physical Notes * HPI [...]
--- OUTSIDE RECORDS SUMMARY | 2024-10-22 16:37 | XMS_ITS | Patient Health Record ---
Author Organization [facility] Address [address] [place] [address] Care Team Providers Care Stem Teacher Name Role Phone Jonesnegra Rosalba Primary Care Provider Unavailab Walker Jovel Jr Unavailable [phone] Allergies No Known Allergies Reason For Referral [...] Problem Status W/U Status Risk Notes Problem 206888492 Colon cancer screening (Z12.11) Active confirmed Problem 1991570 Helicobacter pylori [H. pylori] as the cause of diseases classified elsewhere (B96.81) Active confirmed Problem 472391519 Gastritis, unspecified, without bleeding (K29.70) Active confirmed Problem Gastroesophageal reflux disease (484900472) Gastroesophageal reflux disease (K21.9) Active confirmed Problem 644270333 H. pylori infection (A04.8) Active confirmed Problem 266401230557001 meterman (current) use of oral hypoglycemic drugs (Z79.84) Active confirmed Problem 088239048 Gastroesophageal reflux disease, unspecified whether esophagitis present (K21.9) Active confirmed Plan Of Treatment Pending Test Test Name Order Date H PYLORI AG, STOOL 07/13/2023 Future Test Test Name Order Date COLONOSCOPY 06/18/2020 UPPER GI ENDOSCOPY 11/21/2022 COLONOSCOPY 11/21/2022 Insurance Providers Payer Name Payer Address Payer Phone Subscriber Number Group Number Insured Name Patient Relationship to Insured Coverage Start Date Coverage End Date [facility] [address] [place] [address] [id number] TC MANUEL Self - patient is the insured MEDICAID OF [facility] [address] [place] [address] [id number] TC MANUEL Self - patient is the insured Medical (General) History Medical History History ICD Code Diabetes mellitus Hypertension Discussed disease Hyperlipidemia H. pylori associated gastritis, EGD 02/25 , OAC x2 weeks Colonoscopy 02/25, colon polyps, seven-ye ar recall Surgical History Surgery Date(Month/Year) disc surgery- [facility] 2017
== END 2024-10-22 15:40 | disposition home or self-care (01) ==
LOC: HO.CT 15:39
PROVIDERS: PCP Internal Medicine; Visit Provider Physician Assistant Medical
DX: Z12.2 Encounter for screening for malignant neoplasm of respiratory organs (principal); Z87.891 Personal history of nicotine dependence
CPT/HCPCS: 71271

== ENCOUNTER → 2024-10-22 15:40 | Outpatient (BNV) | payer OTHER, SELFPAY | PROVIDERS: PCP Internal Medicine; Visit Provider Radiology Diagnostic Radiology | DX: F17.210 Nicotine dependence, cigarettes, uncomplicated (principal) | CPT/HCPCS: 71271 ==

== ENCOUNTER 2025-02-08 07:09 | Outpatient (REF) | payer OTHER, SELFPAY ==
--- OUTSIDE RECORDS SUMMARY | 2025-02-08 07:12 | XMS_ITS | Patient Health Record ---
Author Organization [facility] Address [address] [place] [address] Care Team Providers Care Customer Counter Representative Name Role Phone Jonesnegra Rosalba Primary Care Provider Unavailab Walker Jovel Jr Unavailable [phone] Allergies No Known Allergies Reason For Referral [...] Problem Status W/U Status Risk Notes Problem 699571021 Colon cancer screening (Z12.11) Active confirmed Problem 1068125 Helicobacter pylori [H. pylori] as the cause of diseases classified elsewhere (B96.81) Active confirmed Problem 717022087 Gastritis, unspecified, without bleeding (K29.70) Active confirmed Problem Gastroesophageal reflux disease (658933115) Gastroesophageal reflux disease (K21.9) Active confirmed Problem 388454049 H. pylori infection (A04.8) Active confirmed Problem 242773587045197 lobsterman (current) use of oral hypoglycemic drugs (Z79.84) Active confirmed Problem 975260039 Gastroesophageal reflux disease, unspecified whether esophagitis present (K21.9) Active confirmed Plan Of Treatment Pending Test Test Name Order Date H PYLORI AG, STOOL 07/13/2023 Future Test Test Name Order Date COLONOSCOPY 06/18/2020 UPPER GI ENDOSCOPY 11/21/2022 COLONOSCOPY 11/21/2022 Insurance Providers Payer Name Payer Address Payer Phone Subscriber Number Group Number Insured Name Patient Relationship to Insured Coverage Start Date Coverage End Date [facility] [address] [place] [address] [id number] TC MANUEL Self - patient is the insured MEDICAID OF [facility] [address] [place] [address] [id number] TC MANEUL Self - patient is the insured Medical (General) History Medical History History ICD Code Diabetes mellitus Hypertension Discussed disease Hyperlipidemia H. pylori associated gastritis, EGD 02/25 , OAC x2 weeks Colonoscopy 02/25, colon polyps, seven-ye ar recall Surgical History Surgery Date(Month/Year) disc surgery- [facility] 2017
--- OUTSIDE RECORDS SUMMARY | 2025-02-08 07:13 | XMS_ITS | Clinical Summary ---
Author Organization [address] [facility] Address [address] [place] [address] Phone Care Team Providers Care Whirley Operator Name Role Phone Rosalba Bah MD Primary Care Provider [phone] Allergies No known active allergies Medications Hospital, Clinic, or Other Facility Administered Medication Ordered Dose Route Frequency Start Date End Date Status lidocaine (PF) (XYLOCAINE-MPF) 1 % injection 0.5 mLIndications:Planta r fasciitis .5 mL inj Once PRN Procedure 01/30/2025 01/30/2025 Ended triamcinolone acetonide (KENALOG-40) 40 mg/mL injection 40 mgIndications:Planta r fasciitis 40 mg IAtc Once PRN Procedure 01/30/2025 01/30/2025 Ended Encounters Date Type Department Care Team Description 01/30/2025 2:45 PM EDT Office Visit Orthopedic Surgery [facility] [address] [phone] Andrey, Mook A, DPM Pain in right foot (Primary Dx); Pes planus of both feet; Equinus contracture of right ankle; Plantar fasciitis 12/09/2024 1:45 PM EDT Office Visit Orthopedic Surgery [facility] [address] [phone] Andrey, Mook A, DPM Pain in right foot (Primary Dx); Pes planus of both feet; Equinus contracture of right ankle; Plantar fasciitis 11/25/2024 1:45 PM EDT Consult Orthopedic [facility] [address] [phone] Andrey, Mook A, DPM Pain in right foot (Primary Dx); Equinus contracture of right ankle; Pes planus of both feet; Plantar fasciitis from Last 3 Months Social History Tobacco Use Types Packs/Day Years Used Date Smoking Tobacco: Never Assessed Sex and Gender Information Value Date Recorded Sex Assigned at Not on file Legal Sex Male 11:19 AM EST Gender Identity Not on file Sexual Orientation Not on file Last Filed Vital Signs Vital Sign Reading Time Taken Comments Blood Pressure - - Pulse - - Temperature - - Respiratory Rate - - Oxygen Saturation - - Inhaled Oxygen Concentration - - Weight 77.1 kg (170 lb) 11/25/2024 1:51 PM EDT Height 177.8 cm (5' 10 ) 11/25/2024 1:51 PM EDT Body Mass Index 24.39 11/25/2024 1:51 PM EDT Plan of Treatment Upcoming Encounters Date Type Department Care Team (Late st Contact Info) Description 03/13/2025 2:15 PM EDT Office Visit Orthopedic Surgery - [place] [address] [phone] Mook Balderas, BETH [address] [address] Health Maintenance Due Date Last Done Comments DTaP,Tdap,and Td Vaccines (1 - Tdap) 08/05/1982 Zoster Vaccines (1 of 2) 08/05/2013 Pneumococcal Vaccine: 50+ Years (2 of 2 - PCV) 05/11/2022 05/11/2021 COVID-19 Vaccine ( season) 2024 05/11/2021, 11/04/2020, 10/17/2020, Additional history exists Depression Screening 06/05/2024 Cholesterol Screening (Lipid Panel) 10/04/2024 Colorectal Cancer Screening: Colonoscopy 10/04/2024 HIV Screening 10/04/2024 Hepatitis C Screening 10/04/2024 Social Influencers of Health Screening 10/04/2024 Influenza Vaccine (#1) 2025 , 03/08/2023, 05/04/2021, Additional history exists RSV Immunization Adult Patients (1 - 1-dose 75+ series) 08/05/2038 HIB Vaccines Aged Out No longer eligi ble based on patient's age to complete this topic HPV Vaccines Aged Out No longer eligi ble based on patient's age to complete this topic Hepatitis A Vaccines Aged Out No long er eligible based on patient's age to complete this topic Hepatitis B Vaccines Aged Out No long er eligible based on patient's age to complete this topic IPV Vaccines Aged Out No longer eligi ble based on patient's age to complete this topic MMR Vaccines Aged Out No longer eligi ble based on patient's age to complete this topic Meningococcal ACWY Vaccine Aged Out N o longer eligible based on patient's age to complete this topic Meningococcal B Vaccine Aged Out No l onger eligible based on patient's age to complete this topic RSV Immunization Patients Under 20 months Aged Out No longer eligible based on patient's age to complete this topic Varicella Vaccines Aged Out No longer eligible based on patient's age to complete this topic Procedures Procedure Name Priority Date/Time Associated Diagnosis Comments INJECTION TENDON OR LIGAMENT Routine 01/30/2025 2:45 PM EDT Plantar fasciitis INJECTION TENDON OR LIGAMENT Routine 12/09/2024 1:45 PM EDT Plantar fasciitis from Last 3 Months Results * Injection tendon or ligament (01/30/2025 2:45 PM EDT) Narrative Mook Balderas DPM - 01/30/2025 2:45 PM EDT Mook Balderas DPM 01/30/2025 4:22 PM Injection tendon or ligament Indications: pain Details: 25 G needle Medications: 0.5 mL lidocaine (PF) 1 %; 40 mg triamcinolone acetonide 40 mg/mL Informed Consent: Laterality: Right us Mook Balderas DPM IN CLINIC/BEDSIDE ORDERABLE S Final Result * Injection tendon or ligament (12/09/2024 1:45 PM EDT) Mook Olson DPM - 12/09/2024 1:45 PM EDT Mook Balderas DPM 12/09/2024 6:49 PM Injection tendon or ligament Indications: pain Details: 25 G needle Medications: 0.5 mL lidocaine (PF) 1 %; 40 mg triamcinolone acetonide 40 mg/mL Informed Consent: Laterality: Right us Mook Francis Andrey DPM IN CLINIC/BEDSIDE ORDERABLE S Final Result from Last 3 Months Insurance MEDICAID - [place] [facility] Care Teams Whirley Operator Relationship Specialty Start Date End Date Rosalba Bah MD [address] [place] [address] [place] [id number] PCP - General Internal Medicine 05/04/17
[2025-02-08 08:38] LABS: Alanine Aminotransferase 26 U/L (0-40); Albumin Level 4.5 g/dL (3.5-5.0); Alkaline Phosphatase 71 U/L (39-117); Anion Gap 14 (12-20); Aspartate Amino Transferase 17 U/L (5-37); Blood Urea Nitrogen 17 mg/dL (9-16); Calcium 8.6 mg/dL (8.4-10.2); Carbon Dioxide 25 mmol/L (22-29); Chloride 105 mmol/L (96-108); Estimated Glomerular Filt Rate > 60; Potassium 4.0 mmol/L (3.3-5.1); Sodium 140 mmol/L (135-145); Total Protein 7.0 g/dL (6.5-8.0)
[2025-02-08 08:51] LABS: Hemoglobin A1C 197.9151 umol/L; Total Hemoglobin (HGBA1C) 3977.4063 umol/L
== END 2025-02-08 07:10 | disposition home or self-care (01) ==
LOC: HO.LAB 07:09
PROVIDERS: PCP Internal Medicine; Visit Provider Internal Medicine
DX: Z00.00 Encounter for general adult medical examination without abnormal findings (principal); E11.9 Type 2 diabetes mellitus without complications; E78.00 Pure hypercholesterolemia, unspecified; I10 Essential (primary) hypertension; M76.61 Achilles tendinitis, right leg
CPT/HCPCS: 36415; 80053; 83036